=== PATIENT | male | born 1940 | race Caucasian/White ===

== ENCOUNTER 2016-12-15 12:36 | Outpatient (CLI) | payer OTHER ==
--- NOTE | 2016-12-15 14:18 | MRI ---
MRI OF LUMBAR SPINE: Date: 12/15/16 COMPARISON: None. HISTORY: Right lower extremity radiculopathy, chronic back pain radiating into the right hip. TECHNIQUE: Multiplanar, multisequence MR imaging of the lumbar spine obtained without contrast. FINDINGS: The sagittal STIR imaging demonstrates increased signal intensity suggesting edema within the parasp inal soft tissues posterior to the facet joints at the L4-5 level, right greater than left. There is also edematous change in the region of the facet joint bilaterally at the L4-5 level, right greater than left. Assuming five lumbar-type vertebral bodies, the conus medullaris terminates at the L1 level. There i s anterolisthesis of L4 on L5 measuring 8.0 mm. T12-L1: There is mild bilateral facet hypertrophy. There is mild anterior osteophyte formation. There is no significant central canal or neural foraminal stenosis. L1-2: Mild bilateral facet hypertrophy. Minimal disc bulge. No significant central canal or neural foramin al stenosis. Mild anterior osteophyte formation. L2-3: Mild bilateral facet hypertrophy. Minimal disc bulge. No significant central canal or neural foramin al stenosis. L3-4: There is disc desiccation and mild disc bulge. There is bilateral facet hypertrophy, right greater t knapp left. There is mild bilateral neural foraminal stenosis. No significant central canal stenosis. L4-5: Secondary to anterolisthesis of L4 on L5, as well as mild disc bulge and prominent bilateral facet h ypertrophy/hypertrophy of ligamentum flavum, there is a moderate/severe degree of central canal sten osis. In addition, severe bilateral facet hypertrophy causes severe bilateral neural foraminal steno sis, left greater than right. L5-S1: There is disc space narrowing, disc desiccation, and mild disc bulge. There is significant bilateral facet hypertrophy, right greater than left, with moderate bilateral neural foraminal stenosis, righ t greater than left. The imaged retroperitoneal structures demonstrate no acute findings. IMPRESSION: Significant central canal and bilateral neural foraminal stenosis at L4-5 secondary to anterolisthes is, mild disc bulge, and prominent facet disease. There is significant bilateral neural foraminal st enosis at the L5-S1 level as well. POS: VIKAS
--- OUTSIDE RECORDS SUMMARY | 2016-12-17 07:29 | XMS | Clinical Summary ---
:1940 Author Organization [facility] Address [address] [place] [address] Phone Care Team Providers Name Role Phone , Primary Care Provider Unavailable Allergies Not on File Current Medications Not on file Active Problems Not on file Social History Tobacco Use Types Packs/Day Years Used Date Never Assessed Sex Assigned at Date Recorded Not on file Last Filed Vital Signs Not on file Plan of Treatment Not on file Results Not on filefrom Last 3 Months
== END 2016-12-15 12:37 | disposition home or self-care (01) ==
LOC: SCSMRI 12:36
PROVIDERS: ATTEND Orthopaedic Surgery
DX: M51.16 Intervertebral disc disorders with radiculopathy, lumbar region (principal); M47.26 Other spondylosis with radiculopathy, lumbar region; M43.16 Spondylolisthesis, lumbar region; M48.07 Spinal stenosis, lumbosacral region
CPT/HCPCS: 72148

== ENCOUNTER 2017-05-18 15:19 | Outpatient (CLI) | payer OTHER ==
--- NOTE | 2017-05-18 17:30 | RAD ---
LUMBAR SPINE THREE VIEWS: 05/18/17 HISTORY: Low back pain. COMPARISON: None. FINDINGS: In the neutral position, there is 7 mm of anterolisthesis of L4 upon L5. Upon flexion, there is 1.1 c m of anterolisthesis of L4 upon L5. Upon extension, there is 9 mm of anterolisthesis of L4 upon L5. T here are degenerative changes in the posterior elements. Note, there are five lumbar type vertebral bodies. Vascular stent is indentified. IMPRESSION: Spondylolisthesis of L4 upon L5 as defined above. POS: VIKAS
== END 2017-05-18 15:20 | disposition home or self-care (01) ==
LOC: TBSIIMAG 15:19
PROVIDERS: ATTEND Neurological Surgery
DX: M54.16 Radiculopathy, lumbar region (principal); M43.16 Spondylolisthesis, lumbar region; Z95.828 Presence of other vascular implants and grafts
CPT/HCPCS: 72100

== ENCOUNTER 2017-06-25 10:30 | Inpatient (IN) | payer OTHER, MEDICARE ==
[2017-06-25 11:17] VITALS: BMI 26.3
[2017-06-29] MEDS ORDERED: CEFAZOLIN/Water 2 GM/20 ML SYRINGE ONE (05:56)
[2017-06-29] MEDS ORDERED: Bupivacaine HCl 0.5%/Epinephrine 1:200,000/PF 30 ml Vial ONE (06:16)
[2017-06-29] MEDS ORDERED: Sodium Chloride 0.9% 20 ML ONE (06:16)
[2017-06-29] MEDS ORDERED: Thrombin 5000 UNITS/5 ML VIAL ONE (06:16)
--- NOTE | 2017-06-29 06:41 | HP ---
REASON FOR ADMISSION: Spine surgery. HISTORY OF PRESENT ILLNESS: Mr. العراقي is a 76-year-old gentleman with symptoms of neurogenic teresa ication over the past year to year and a half. Physical therapy and injections have helped, but the relief has been temporary. His imaging has revealed spondylolisthesis and some significant stenosis. He is here to get that corrected. PAST MEDICAL HISTORY: Hypertension, hypercholesterolemia, coronary artery disease. PAST SURGICAL HISTORY: Cardiac stents, skin cancer surgery. ADMISSION MEDICATIONS: Aspirin, Coenzyme Q 10, lisinopril, Livalo. ALLERGIES: No known drug allergies. SOCIAL HISTORY: Mr. العراقي smokes cigars. He denies alcohol use. PHYSICAL EXAMINATION: GENERAL: Mr. العراقي is awake, he is alert. He is oriented and converses well. There are no signs of dysphagia. NEURO: Cranial nerves are intact. There is no lateralizing motor or sensory deficits I can appreciate in lower extremities. There is go od strength in iliopsoas, quadriceps, hamstrings, anterior tibia and EHL. There is some decreased se nsation in lower extremities including the right L5 dermatome, which is worse than the left. IMAGING FINDINGS: There is an L4-L5 spondylolisthesis and resulting stenosis. ASSESSMENT: Subluxation and stenosis of the spinal canal with neurogenic claudication. PLAN: 1. Decompressive laminectomy and transforaminal lumbar interbody arthrodesis at L4-5. 2. Aggressive postoperative mobilization and discharge.
[2017-06-29] MEDS ORDERED: Ondansetron HCl/PF 4 MG/2 ML Vial ONE ×2 (06:45→13:24)
[2017-06-29] MEDS ORDERED: Fentanyl 250 MCG/5 ML VIAL ONE (06:45)
[2017-06-29] MEDS ORDERED: Famotidine/PF 20 mg/2ml Vial ONE (06:45)
[2017-06-29] MEDS ORDERED: Milk Of Magnesia 30 ML UDCUP PO PRN (11:21)
[2017-06-29] MEDS ORDERED: Acetaminophen/Codeine 30-300mg Tablet PO PRN ×2 (11:21)
[2017-06-29] MEDS ORDERED: traMADol HCl 50 MG TAB PO PRN (11:21)
[2017-06-29] MEDS ORDERED: diphenhydrAMINE 50 MG/ML VIAL IVP PRN (11:21)
[2017-06-29] MEDS ORDERED: Fleet Enema 133 ML BOT PR PRN (11:21)
[2017-06-29] MEDS ORDERED: Morphine 4 MG/ML VIAL SLOW IVP PRN ×2 (11:21)
[2017-06-29] MEDS ORDERED: tiZANidine HCl 4 MG TAB PO PRN (11:21)
[2017-06-29] MEDS ORDERED: Promethazine HCl 12.5 MG SUPP PR PRN (11:21)
[2017-06-29] MEDS ORDERED: Meperidine HCl/PF 25 MG/ML VIAL SLOW IVP PRN (11:21)
[2017-06-29] MEDS ORDERED: Promethazine 25 MG TAB PO PRN (11:21)
[2017-06-29] MEDS ORDERED: diphenhydrAMINE 25 MG CAP PO PRN (11:21)
[2017-06-29] MEDS ORDERED: Ondansetron HCl/PF 4 MG/2 ML Vial IVP PRN ×2 (11:21)
[2017-06-29] MEDS ORDERED: Bisacodyl 10 MG SUPP PR PRN (11:21)
[2017-06-29] MEDS ORDERED: Fentanyl 100 MCG/2 ML VIAL ONE ×2 (12:12→12:55)
[2017-06-29] MEDS ORDERED: PROPOFOL 200 MG/20 ML VIAL ONE (13:24)
[2017-06-29] MEDS ORDERED: Glycopyrrolate 0.2 MG/ML 5 ML SYRINGE ONE (13:24)
[2017-06-29] MEDS ORDERED: Dexamethasone 20 MG/5 ML VIAL ONE (13:24)
[2017-06-29] MEDS ORDERED: PHENYLEPHRINE-NS 100 MCG/ML 10 ML SYRINGE ONE (13:24)
[2017-06-29] MEDS ORDERED: Ketorolac Tromethamine 30 MG/ML VIAL ONE (13:24)
[2017-06-29] MEDS ORDERED: Lidocaine 1% PF 5 ML VIAL ONE (13:24)
--- NOTE | 2017-06-29 13:34 | OP ---
DATE OF PROCEDURE: 06/29/2017 SURGEON: Jordan Hogan M.D. CORE JAVA ENGINEER: REYNA Casillas. PREOPERATIVE INDICATION: Treat pain, prevent neurological deterioration. PREOPERATIVE DIAGNOSES: L4-5 spondylolisthesis with spinal stenosis and neurogenic claudication. POSTOPERATIVE DIAGNOSES: L4-5 spondylolisthesis with spinal stenosis and neurogenic claudication. OPERATIVE PROCEDURE: Decompressive laminectomy, medial facetectomy, foraminotomy L4-L5, transforamin al lumbar interbody arthrodesis L4-L5, pedicle screw and viridiana instrumentation L4-L5, posterolateral ar throdesis L4-L5, local morselized autograft, morselized Allograft. PREOPERATIVE MEDICATION: Ancef 2 grams IV. DRAIN NUMBER: Zero. DRAIN TYPE: None. OPERATIVE DICTATION: The patient was brought to the operating room. General endotracheal anesthesia was induced. The patient was positioned prone on the Matty frame with the appropriate padding for the chest and hips. A lateral fluoro radiograph was used to plan our incision. The lumbar skin was sterilely prepped and draped and hair was removed with electric clippers. A lateral fluoro radiogra ph was used to ángela our incision. Skin was sterilely prepped and draped and we opened with a 10-blad e knife. We controlled bleeding with bipolar and monopolar cautery. We used monopolar cautery to di ssect through subcutaneous tissues to the thoracodorsal fascia. We incised the fascia in the midline and reflected the paraspinal muscles off the spinous process and lamina of L4-L5. A lateral fluoro radiograph confirmed the levels upon which we were operating. We then used an Adson and Kerrison andreina geurs to fashion a laminectomy at L4-L5. We widened our laminectomy defect until we were flushed wit h the L4 and L5 pedicles. We identified the L4 nerve roots at L3-4 interspace and out their respecti ve foramina as well as the L5 nerve roots in the lateral recesses and out the foramen. With the comp letion of decompression, we turned our attention to arthrodesis. We performed a complete facetectomy on the patient's right side at L4-5 with the facet joint and the pars out of the way. We entered the right side at L4-L5 foramen. We accessed the interspace, and we removed disk contents using curettes and rongeurs. We used curettes and a bone rasp to prepare the endplates for grafting. We measured the height of the interspace to 12 mm. A 12-mm PEEK interverteb ral graft was brought into the field. Laminectomy bone was cleaned of soft tissue attachments, escobar lized, and added to demineralized bone matrix as our fusion substrate. That substrate was packed int o the PEEK graft and the graft was advanced into the interspace under radiographic guidance to the ap propriate depth. We irrigated copiously with bacitracin irrigation and turned our attention to pedic le screw instrumentation. Using bony anatomic landmarks, palpation of the medial portion of the pedicles and a lateral fluoro r adiograph as a guide, we chose entry points for our pedicle screws at L4 and L5 bilaterally. We dril led out the entry points and used the bone awl to advance through the pedicles into the vertebral bod ies. We probed the trajectories and found them completely encased in bone. We tapped them with a 5. 5 mm tap and probed them again. We placed 6.5 mm screws into the pedicles at L4 and L5 bilaterally. A 360-degree image set was generated with our isocentric C-arm. This showed adequate positioning of our pedicle screw instrumentation. The right-sided L5 pedicle screw was slightly lateral, but only two threads came out of the anterior lateral corner of the vertebral body and this was under bony ost eophyte and in a safe position. We irrigated copiously with bacitracin irrigation. We decorticated the transverse processes bilaterally, and over the transverse processes of L4 and L5, we left deminer alized bone matrix and morselized autograft as our posterolateral fusion substrate. We brought rods down into our screw heads and tightened caps over the rods. We performed gentle compression across t he interspace before final tightening. We used a lblbvw-[id number] mechanism to ensure adequate torque. We irrigated copiously with bacitracin irrigation of the center of the wound. We placed van comycin powder in the wound. We closed in anatomic layers. We applied a sterile dressing. This is a clean case and no contamination.
[2017-06-29] MEDS: CEFAZOLIN/Water 2 GM/20 ML SYRINGE SLOW IVP SCH ×2 (15:33→21:29)
[2017-06-29] MEDS: Sodium Chloride 0.9% 1,000 ML IV SCH (18:56)
[2017-06-29] MEDS ORDERED: Atorvastatin Calcium 10 MG TAB PO SCH (21:00)
[2017-06-29] MEDS: Cepastat Lozenges 1 LOZ PO PRN (21:59)
[2017-06-30] MEDS: Sodium Chloride 0.9% 1,000 ML IV SCH (03:20)
[2017-06-30] MEDS: CEFAZOLIN/Water 2 GM/20 ML SYRINGE SLOW IVP SCH (05:06)
[2017-06-30] MEDS ORDERED: Tamsulosin HCl 0.4 MG CAP PO SCH (06:00)
[2017-06-30] MEDS: Cepastat Lozenges 1 LOZ PO PRN (06:56)
--- NOTE | 2017-06-30 07:10 | PRG ---
DATE OF SERVICE: 06/30/2017 Mr. العراقي is 1 day out from decompression fusion of the spondylolisthesis at L4-L5 causing spinal s tenosis and neurogenic claudication. Mr. العراقي was up overnight walking frequently. His legs feel good. There is no more radiating pain. Even his back pain has improved. He wants to get out of [facility] today. He is safe for his activities of daily living so we will Hep-Lock the IV and we wi ll discharge home. Homegoing prescriptions are left for him. Activity restrictions were discussed a nd followup arrangements will be made.
--- NOTE | 2017-06-30 07:16 | DIS ---
NEUROSURGERY DISCHARGE SUMMARY REASON FOR ADMISSION: Spine surgery. ADMISSION HISTORY: Mr. العراقي came to the hospital for surgical management of L4-L5 spondylolisthes is resulting in spinal stenosis and neurogenic claudication. This was refractory to nonsurgical sasha ures. Mr. العراقي was taken to the operating room for decompression and fusion. He did well overnight and at the time of dismissal, he is ambulatory, tolerating a general diet, and voiding spontaneously. He is safe for his activities of daily living. FOLLOWUP: Arrangements are being made by our office. WOUND CARE: Do not submerge the wound under water. Showers are acceptable. ACTIVITY RESTRICTIONS: No bending, lifting or twisting for 2 months.
[2017-06-30 07:56] VITALS: BP 149/72; TEMP 97.6
[2017-06-30] MEDS ORDERED: Lisinopril 20 MG TAB PO SCH (09:00)
== END 2017-06-30 10:23 | disposition home or self-care (01) | DRG 455 ==
LOC: SURG A 06-29 05:36 → SURG B 06-29 13:50
PROVIDERS: ADMIT Neurological Surgery; ATTEND Neurological Surgery
PROC: 0SG0071 Fusion of Lumbar Vertebral Joint with Autologous Tissue Substitute, Posterior Approach, Posterior Column, Open Approach (ICD-10-PCS; principal; 2017-06-29)
PROC: 0SG00AJ Fusion of Lumbar Vertebral Joint with Interbody Fusion Device, Posterior Approach, Anterior Column, Open Approach (ICD-10-PCS; 2017-06-29)
PROC: 0ST20ZZ Resection of Lumbar Vertebral Disc, Open Approach (ICD-10-PCS; 2017-06-29)
DX: M48.062 Spinal stenosis, lumbar region with neurogenic claudication (principal); M43.16 Spondylolisthesis, lumbar region; I10 Essential (primary) hypertension; E78.5 Hyperlipidemia, unspecified; I25.10 Atherosclerotic heart disease of native coronary artery without angina pectoris
CPT/HCPCS: 76001; A4216; C1713; C1768; G8978-GP-CI; G8979-GP-CI; G8980-GP-CI; G8987-GO-CI; G8988-GO-CI; G8989-GO-CI; J0131; J0670; J2405; J3010; J3370; J3490; S0028

== ENCOUNTER 2017-06-25 10:39 | Outpatient (CLI) | payer OTHER, MEDICARE ==
[2017-06-25 11:19] LABS: Hemoglobin 14.9 g/dL (14.0-18.0); Mean Corpuscular HGB CONC 34.7 g/dL (32.0-36.0); Mean Corpuscular Hemoglobin 32.8 pg (27.0-31.0); Mean Corpuscular Volume 94.6 fl (80.0-94.0); Mean Platelet Volume 7.2 fL (7.4-10.4); Platelet Count 188 thou/uL (130-400); RBC Distribution Width 11.5 % (11.5-14.5); Red Blood Cell (RBC) Count 4.52 mill/uL (4.70-6.10); White Blood Cell (WBC) Count 6.5 thou/uL (4.8-10.8)
[2017-06-25 11:21] LABS: PTT 31.1 SEC (22.9-36.1); Prothrombin Time 12.9 SEC (12.0-14.7)
[2017-06-25 11:32] LABS: Anion Gap 13 mmol/L (10-20); BUN (Urea Nitrogen) 15 mg/dL (8.4-25.7); Calc. Creatinine Clearance 0 mL/min (70-130); Carbon Dioxide 24 mmol/L (23-31); Chloride 107 mmol/L (98-107); Estimated GFR-MDRD 74; Glucose 99 mg/dL (83-110); Potassium 4.7 mmol/L (3.5-5.1); Sodium 139 mmol/L (136-145)
== END 2017-06-25 10:40 | disposition home or self-care (01) ==
LOC: LABBT 10:39
PROVIDERS: ATTEND Neurological Surgery
DX: Z01.818 Encounter for other preprocedural examination (principal); M48.061 Spinal stenosis, lumbar region without neurogenic claudication; M43.16 Spondylolisthesis, lumbar region
CPT/HCPCS: 80048; 85027; 85610; 85730

== ENCOUNTER 2017-07-03 15:14 | Emergency (ER) | payer MEDICARE, OTHER ==
--- NOTE | 2017-07-03 17:41 | OP ---
INDICATION: Wound drainage. PROCEDURE NOTE: The incision was prepped and draped in sterile fashion. Anesthesia was achieved wit h 2 mL of 1% lidocaine without epinephrine. The wound was cleansed with ChloraPrep prior to this pro cedure. There was no wound dehiscence, but there was small area of serosanguineous changes on the to p of the surgical incision. This incision was oversewn with 2 vertical mattress sutures using a 2-0 nylon interrupted. There was resolution of the drainage following placement of the sutures. The pat ient tolerated the procedure well without complications.
--- NOTE | 2017-07-03 20:39 | CON ---
DATE OF CONSULTATION: 07/03/2017 The patient is a 76-year-old male postop day 4 for L4-L5 decompression and fusion by Dr. Raleigh barron, who presents to the emergency department for incisional drainage and wound check. The kait nt reports that since the surgery has been doing well with minimal pain; however, he has had persiste nt serosanguineous incisional drainage over the past few days. He reports he saturates several dress ings throughout the day. He denies any significant pain, redness, wound dehiscence, fever or any oth er associated symptoms. I am seeing the patient at the bedside. He is in no acute distress. He is afebrile. The incision appears to be intact without any evidence of dehiscence surrounding redness o r other signs of infection. He is noted to have serosanguineous drainage which appears to be coming from the superior portion of the incision. Again, this is serosanguineous and does not appear purule nt or infectious in nature. I applied 2 vertical mattress sutures over the top portion of the incisi on and this resulted in resolution of the drainage. I applied a new dressing and ER will send ray laureano home with a script for Keflex 500 mg q.i.d. for the next 10 days. I have since discussed wound car e with the patient and recommended wound check with Dr. Hogan early next week. The patient under stands and will call our office on Wednesday to make arrangements. I will also notify Dr. Hogan.
== END 2017-07-03 17:06 | disposition home or self-care (01) ==
LOC: ERS 15:14
DX: M96.89 Other intraoperative and postprocedural complications and disorders of the musculoskeletal system (principal); I10 Essential (primary) hypertension; F17.290 Nicotine dependence, other tobacco product, uncomplicated
CPT/HCPCS: 12001

== ENCOUNTER 2017-08-23 12:53 | Outpatient (CLI) | payer OTHER ==
--- NOTE | 2017-08-23 14:16 | RAD ---
LUMBAR SPINE 2 VIEWS: HISTORY: Postop followup. Low back pain. COMPARISON: 05/18/17. Postoperative changes are noted since the prior exam. Pedicle screws are now in place transfixing L4 and L5. There is an interbody implant in place. There continues to be slight anterolisthesis at L4 -5 less pronounced than on the preoperative study. Disk narrowing at L5-S1 is again noted. Degenera tive spurring is again seen. Minimal retrolisthesis at L3-4. IMPRESSION: Degenerative and postoperative changes of lumbar spine noted. POS: VIKAS
== END 2017-08-23 12:54 | disposition home or self-care (01) ==
LOC: TBSIIMAG 12:53
PROVIDERS: ATTEND Neurological Surgery
DX: M54.5 Low back pain (principal); M47.896 Other spondylosis, lumbar region; Z98.890 Other specified postprocedural states
CPT/HCPCS: 72100

== ENCOUNTER 2017-11-30 13:58 | Outpatient (CLI) | payer OTHER ==
--- NOTE | 2017-11-30 15:48 | RAD ---
LUMBAR SPINE SERIES TWO VIEWS: HISTORY: Left leg pain, radiating down foot for a few weeks. History of previous surgery. COMPARISON: 08/23/2017 FINDINGS: Bilateral pedicle screws are again noted at the L4-L5 level. Markers with disk implant are within th e confines of the disk level. Minimal spondylolisthesis is similar to the prior exam. There is mini mal retrolisthesis of L3 on L4, and there is degenerative disk narrowing at L5-S1. An iliac stent is again noted. IMPRESSION: Stable overall examination. POS: VIKAS
== END 2017-11-30 13:59 | disposition home or self-care (01) ==
LOC: TBSIIMAG 13:58
PROVIDERS: ATTEND Neurological Surgery
DX: M54.16 Radiculopathy, lumbar region (principal)
CPT/HCPCS: 72100

== ENCOUNTER 2021-08-11 09:33 | Outpatient (CLI) | payer MEDICARE | END 2021-08-11 09:34 | disposition home or self-care (01) | LOC: SCSRAD 09:33 | PROVIDERS: ATTEND Family Medicine | DX: R29.898 Other symptoms and signs involving the musculoskeletal system (principal); M47.812 Spondylosis without myelopathy or radiculopathy, cervical region | CPT/HCPCS: 72040 ==